=== PATIENT | female | born 1955 | race Caucasian/White ===

== ENCOUNTER 2016-08-22 07:36 | Day surgery (SDC) | payer BC ==
[~2016-08-22] VITALS: Ht 170.2 cm; Wt 72.5 kg
[~2016-08-22 07:36] MED LIST: ADVIL200 MG PO; CLARITIN10 M3 PO; MAGNESIUM400 M1 PO; PRILOSEC OTC20 MG PO; TYLENOL PM1 CAPLET PO; ZESTORETIC 10-1 EAC1 PO; ZYRTEC10 M3 PO
[2016-08-22] MEDS ORDERED: FOLBIC RF TABL1 EACH PO (07:55)
[2016-08-22 08:01] VITALS: BP 115/62
[2016-08-22] MEDS ORDERED: COLACE100 MG PO (14:44)
[2016-08-22] MEDS ORDERED: PERCOCET 5/31 TABLET PO (14:44)
[2016-08-22 16:36] VITALS: BP 128/61
[2016-08-22 17:34] VITALS: BP 142/65
[2016-08-22 18:47] VITALS: BP 122/64
== END 2016-08-22 18:48 | disposition home or self-care (01) ==
LOC: SDC 07:36
DX: K43.6 Other and unspecified ventral hernia with obstruction, without gangrene (principal); I10 Essential (primary) hypertension; K21.9 Gastro-esophageal reflux disease without esophagitis
CPT/HCPCS: C1781; J0330; J0690; J1170; J1885; J2250; J2405; J2710; J3010